=== PATIENT | male | born 1995 | race Caucasian/White ===

== ENCOUNTER 2020-06-07 04:25 | Emergency (ER) | payer SELFPAY ==
[~2020-06-07] VITALS: Ht 172.7 cm; Wt 90.7 kg
[2020-06-07 04:35] VITALS: BP 134/79
== END 2020-06-07 05:04 ==
LOC: MED 04:25
DX: Z04.3 Encounter for examination and observation following other accident (principal); Z02.89 Encounter for other administrative examinations; Y04.0XXA Assault by unarmed brawl or fight, initial encounter; Y93.89 Activity, other specified; Y92.89 Other specified places as the place of occurrence of the external cause; Y99.8 Other external cause status
CPT/HCPCS: 99283